=== PATIENT | female | born 1950 | race Hispanic/Latino ===

== ENCOUNTER 2019-02-08 06:23 | Observation (INO) | payer MEDICARE ==
[2019-02-07 14:28] LABS: BASOPHILS % 0.5 % (0.0-1.0); EOSINOPHILS # (AUTO) 0.2 (0.0-0.4); EOSINOPHILS % 2.3 % (0.0-6.0); HEMATOCRIT 38.1 % (34.2-44.1); HEMOGLOBIN 12.1 g/dL (12.0-16.0); LYMPHOCYTES # (AUTO) 1.9 (1.0-3.2); LYMPHOCYTES % 22.5 % (18.0-39.1); MEAN CORPUSCULAR HEMOGLOBIN 25.9 pg (28-32); MEAN CORPUSCULAR HGB CONC 31.8 g/dL (31-35); MEAN CORPUSCULAR VOLUME 81.6 fL (81-99); MONOCYTES # (AUTO) 0.4 (0.2-0.8); MONOCYTES % 4.7 % (4.4-11.3); NEUTROPHILS # (AUTO) 5.8 (2.1-6.9); NEUTROPHILS % 69.6 % (38.7-80.0); PLATELET COUNT 312 x10e3/uL (140-360); RED BLOOD COUNT 4.67 x10e6/uL (3.6-5.1); RED CELL DISTRIBUTION WIDTH 15.2 % (11.7-14.4)
[2019-02-07 14:40] LABS: INR 0.84
[2019-02-07 14:41] LABS: PARTIAL THROMBOPLASTIN TIME 27.4 seconds (23.8-35.5)
[2019-02-07 14:47] LABS: ALANINE AMINOTRANSFERASE 22 IU/L (0-55); ALBUMIN/GLOBULIN RATIO 1.3 (0.8-2.0); ALKALINE PHOSPHATASE 83 IU/L (40-150); ANION GAP 11.8 mmol/L (8-16); BLOOD UREA NITROGEN 18 mg/dL (7-26); BUN/CREATININE RATIO 21 (6-25); CARBON DIOXIDE 28 mmol/L (22-29); CHLORIDE 102 mmol/L (98-107); CREATININE, SERUM 0.85 mg/dL (0.57-1.11); EST GLOMERULAR FILTRATION RATE > 60 ML/MIN (60-); GLUCOSE 92 mg/dL (74-118); POTASSIUM 3.8 mmol/L (3.5-5.1); SODIUM 138 mmol/L (136-145)
--- NOTE | 2019-02-07 15:41 | Diagnostic Imaging Report ---
Chest, 2 views, 02/07/2019. History: Preop, heart catheterization. Comparison: None available. Findings: The cardiomediastinal silhouette and pulmonary vasculature are within normal limits. There is no focal consolidation or pleural effusion. Linear opacities are present at the lung bases. There are no acute osseous or soft tissue abnormalities. Impression: Bibasilar atelectasis. Signed by: Gaston Bowers on 02/07/2019 3:37 PM
[~2019-02-08] VITALS: Ht 149.9 cm; Wt 58.1 kg
[2019-02-08] VITALS (21 sets, daily range): BP systolic 95–138; BP diastolic 55–99
[~2019-02-08 06:23] MED LIST: AMLODIPINE BESYL5 MG PO; ASPIR 8181 MG PO; ATORVASTATIN CA20 MG PO; FENOFIBRATE145 MG PO; FLUTICASONE PRO16 GM; GABAPENTIN400 MG PO; GLIMEPIRIDE2 MG PO; LISINOPRIL10 MG PO; LORATADINE10 M1 PO; METFORMIN HCL500 MG PO; NAPROXEN250 MG PO; TRADJENTA5 MG PO; VITAMIN D35000 UNIT PO
--- OUTSIDE RECORDS SUMMARY | 2019-02-08 06:30 | XMS REPORT | Clinical Summary ---
Author Author [facility] Address Unknown Phone Unavailable Care Team Providers Care Bulk Picker Name Role Phone Arian Salazar MD PCP Allergies Comments Active Allergy Reactions Severity Noted Date Tramadol High 12/11/2018 Medications End Date Status Medication Sig Dispensed Refills Start Date 12/18/2018 cefdinir (OMNICEF) 300 MG Take 1 14 capsule 0 capsule capsule (300 9 mg total) by mouth 2 (two) times a day for 7 days. Active Problems Not on file Encounters Care Team Description Date Type Specialty Daiana Harrison MA 12/12/2018 Telephone Internal Medicine Chelle TiradoNorma MD Norma Recurrent acute suppurative otitis media without spontaneous rupture of left tympanic membrane (Primary Dx); Acute nonintractable headache, unspecified headache type 12/11/2018 Emergency Emergency Medicine after 02/07/2018 Social History Date Tobacco Use Types Packs/Day Years Used Never Assessed Sex Assigned at Date Recorded Not on file Industry Job Start Date Occupation Not on file Not on file Not on file Travel End Travel History Travel Start No recent travel history available. Last Filed Vital Signs Time Taken Vital Sign Reading 12/11/2018 4:23 PM CDT Blood Pressure 131/78 12/11/2018 4:23 PM CDT Pulse 89 12/11/2018 4:23 PM CDT Temperature 36.7 C (98.1 F) 12/11/2018 4:23 PM CDT Respiratory Rate 16 12/11/2018 4:23 PM CDT Oxygen Saturation 98% - Inhaled Oxygen - Concentration - Weight - 12/11/2018 4:29 PM CDT Height 157.5 cm (5' 2") - Body Mass Index - Plan of Treatment Health Maintenance Due Date Last Done Comments BREAST CANCER SCREENING 2002 COLON CANCER SCREENING 2002 SHINGLES VACCINES (#1) 2002 INFLUENZA VACCINE 04/20/2019 65+ PNEUMOCOCCAL VACCINE Completed 07/05/2018, 06/29/2017 PNEUMOCOCCAL Completed 07/05/2018 POLYSACCHARIDE VACCINE AGE 65 AND OVER Results Not on fileafter 02/07/2018 Insurance Type Payer Benefit Subscriber ID Effective Phone Address Plan / Dates Group [facility] MEDICARE AARP xxxxxxxxx 2018-P MEDICARE resent [facility]PLETE [facility] Advance Directives Patient has advance care planning documents on file. For more information, tarsha manning contact: Mikey Obrien [address] [place] [address]
--- OUTSIDE RECORDS SUMMARY | 2019-02-08 06:30 | XMS REPORT ---
Author Author [facility] Address Unknown Phone Unavailable Care Team Providers Care Cloth Mender Name Role Phone LUCITA KRUSE Unavailable Unavailable Problems This patient has no known problems. Allergies, Adverse Reactions, Alerts This patient has no known allergies or adverse reactions. Medications This patient has no known medications. Results Test Description Test Time Test Comments Text Results Atomic Results Result Comments CHEST 2 VIEWS 2019-02-07 15:36:00 [place] [address] Patient Name: MARIANGEL GARCIA MR #: [id number] : 1950 Age/Sex: 68/F Req #: [id number] [facility] Physician: Ordered by: LUCITA KRUSE MD Report #: [id number] Location: PRACTICE ARCHITECT Room/Bed: Procedure: [id number] DX/CHEST 2 VIEWS Exam Date: 02/07/19 Exam Time: 1420 REPORT STATUS: Signed Chest, 2 views, 02/07/2019. History: Preop, heart catheterization. Comparison: None available. Findings: The cardiomediastinal silhouette and pulmonary vasculature are within normal limits. There is no focal consolidation or pleural effusion. Linear opacities are present at the lung bases. There are no acute osseous or soft tissue abnormalities. Impression: Bibasilar atelectasis. Signed by: Julita Bowers on 02/07/2019 3:37 PM Dictated By: JULITA BOWERS MD 36 Transcribed By: VIDYA on 02/07/191536 COPY TO: LUCITA KRUSE MD
[2019-02-08] MEDS ORDERED: VERAPAMIL HCL 2.5 MG/ML 2 ML VIAL ONE (07:13)
[2019-02-08] MEDS ORDERED: LIDOCAINE HCL 2% LOCAL 20 ML VIAL ONE (07:13)
[2019-02-08] MEDS ORDERED: MIDAZOLAM HCL 2 MG/2 ML VIAL ONE ×2 (07:13→08:06)
[2019-02-08] MEDS ORDERED: HEPARIN SOD/SOD CHLORIDE 2,000 ML ONE (07:13)
[2019-02-08] MEDS ORDERED: HEPARIN SOD (PORCINE) 1000 UNIT/ML 30ML ONE (07:13)
[2019-02-08] MEDS ORDERED: FENTANYL CITRATE/PF 100MCG/2 ML INJ ONE (07:13)
[2019-02-08] MEDS ORDERED: SODIUM CHLORIDE 0.9% 1000ML 1,000 ML ONE (07:14)
[2019-02-08] MEDS ORDERED: IOPAMIDOL 370 MG/ML 200 ML INFUS..BTL INJ ONE ×2 (07:14→08:00)
[2019-02-08] MEDS ORDERED: NITROGLYCERIN/D5W 200 MCG/ML 250 ML ONE (07:14)
[2019-02-08] MEDS ORDERED: SODIUM CHLORIDE 0.9% 50ML 50 ML ONE (07:57)
[2019-02-08] MEDS ORDERED: BIVALRIUDIN 250 MG/VIAL VIAL IV ONE (07:57)
[2019-02-08] MEDS ORDERED: ATROPINE SULFATE 0.1 MG/ML 10ML SYR ONE (08:07)
[2019-02-08] MEDS ORDERED: CLOPIDOGREL BISULFATE 75 MG TAB ONE (08:15)
[2019-02-08] MEDS ORDERED: ASPIRIN 325 MG TAB ONE (08:15)
[2019-02-08] MEDS ORDERED: NITROGLYCERIN 400 MCG/SPRAY 4.9 GM BTL ONE (08:32)
--- NOTE | 2019-02-08 08:53 | NUR ---
0816 Received pt from service delivery manager handoff from [facility] [employer]. LHC via rt Rt arm TR band approach (10cc in Balloon) Dr Isaacs ICU bed requested Rm 190 received per Roll On Worker.Back to baseline orientation Respirations shallow and regular sat 92% 2 L n/c applied with increase sat 99%. Pt had episode suspected vagal response with HR decrease 28 in rn labor delivery 0.5 Atropine ivp with adequate response CO CP and NTG spray x1 per rn labor delivery nurse with adequate relief. Abdomen soft and nontender. Denies necessity to defecate or urinate. Left ac 500cc NS iv 20g w/o s/s infiltration. Bilateral femoral pulses present x4 PT/DP. ok to remove TR band in 2hrs. ds/rn
[2019-02-08] MEDS ORDERED: CLOPIDOGREL BISULFATE 75 MG TAB PO SCH (09:00)
--- NOTE | 2019-02-08 09:30 | NUR ---
0930am Transported pt to Icu per stretcher and zoll with o2 2lNC. Face to Face report to MELINDA Rodriguez. Rt tr band intact w/o hematoma or bleeding. NO gross issues with pain,pallor,pressure or dysrhythmia. VS stable in NSR 80-90 HR. Rt TR band site to wrist has adequate neuro-vascular function (ok to decrease air in balloon at 1100am )Left iv site healthy w/o s/s infiltration.ICU staff given daughters number at work by Soraya LAWRENCE ,also on escort to ICU. Pt is Romansh speaking. micha/rn
--- OUTSIDE RECORDS SUMMARY | 2019-02-08 09:45 | XMS REPORT | Clinical Summary ---
Author Author [facility] Organization [facility] Address Unknown Phone Unavailable Care Team Providers Care Newsperson Name Role Phone Arian Salazar MD PCP [...] Effective Phone Address Plan / Dates Group [facility] MEDICARE AARP xxxxxxxxx 2018-P MEDICARE resent [facility] Advance Directives Patient has advance care planning documents on file. For more information, tarsha manning contact: Mikey Obrien [address] [place] [address]
--- NOTE | 2019-02-08 09:56 | NUR ---
patient received from cath laboratory technician. TR band in place with some swelling noted. will monitor status closely. daughter on the way from home to translate for admit purposes.
--- NOTE | 2019-02-08 10:44 | NUR ---
daughter here to see patient. instructed not to remove right wrist TR band and that i will start to remove at 11AM. instructed to call for any exit from bed. all admit info obtained. stent information given to daughter Mariana. vitals stable with no distress.
--- NOTE | 2019-02-08 11:06 | NUR ---
have started removong air from TR band.
--- NOTE | 2019-02-08 12:19 | NUR ---
TR band off and pressure dressing applied to site. immobilizer still in place and patient instructed not to use wrist until further notice.
--- NOTE | 2019-02-08 12:44 | Operative Report ---
DATE OF PROCEDURE: 02/08/2019 SURGEON: Ahmet Isaacs MD PROCEDURES: 1. Intracoronary stent placement in the left anterior descending artery. 2. Left heart catheterization. INDICATIONS: 1. Angina. 2. Coronary artery disease. ANESTHESIA: Versed, fentanyl, and lidocaine. TECHNIQUE: The right wrist was draped and prepped in the usual manner. The area was anesthetized with lidocaine. Standard Seldinger technique was used to place a 6-Wolof sheath into the right radial artery without difficulty. A TIG catheter was used to selectively engage the left coronary artery, the right coronary artery and perform a left ventriculogram. Attention was then turned to the 80% stenosis in the mid left anterior descending artery. The patient was bolused with Angiomax and started on an Angiomax drip. The patient was given 600 mg of Plavix. IL 3.5 guiding catheter was used to selectively engage the left coronary artery. A Whisper wire was used to cross the area of stenosis. The area was pre-dilated with a 2.5 x 15 mm balloon. A 3.0 x 28 mm Synergy stent was then deployed at 16 atmospheres for 30 seconds. A second Synergy 3.0 x 12 mm stent was deployed immediately proximally at 16 atmospheres for 30 seconds. The stents were then postdilated sequentially with a noncompliant balloon inflated up to high pressures. There was no residual stenosis. RESULTS: 1. The normal left main trunk was normal. 2. There was a large left anterior descending artery, which was heavily calcified. It gave rise to a medium-sized diagonal branch. There was long area of 80% stenosis in the mid left anterior descending artery. 3. There was a medium-sized AV circumflex artery, which gave rise to a large bifurcating obtuse marginal branch with minimal disease in the circumflex system. 4. There was a large dominant right coronary artery, which had some mild disease. 5. There was normal left ventricular size and function with an ejection fraction of 60%. CONCLUSION: Successful stent placement in the left anterior descending artery with minimal residual stenosis. Ahmet Isaacs MD DSH/MODL /[id number]
[2019-02-08] MEDS: METOPROLOL TARTRATE 25 MG TAB PO SCH ×2 (13:46→17:49)
[2019-02-08] MEDS ORDERED: DEXTROSE 50% SYRINGE 50 ML IV PRN (17:30)
[2019-02-08] MEDS: INSULIN REGULAR, HUMAN 100 UNIT/1 ML 3ML VIAL SQ SCH (17:44)
[2019-02-08] MEDS ORDERED: MORPHINE SULFATE 2 MG/ML SYR 1ML IV PRN (20:45)
[2019-02-08] MEDS: MORPHINE SULFATE INJ 4 MG/ML INJ 1ML IV PRN (21:00)
[2019-02-09] VITALS: BP 95/55
[2019-02-09 01:00] VITALS: BP 101/57
[2019-02-09 02:00] VITALS: BP 111/68
[2019-02-09] MEDS: MORPHINE SULFATE INJ 4 MG/ML INJ 1ML IV PRN ×2 (02:54→06:36)
[2019-02-09 03:00] VITALS: BP 114/65
[2019-02-09 07:34] VITALS: BP 109/59
[2019-02-09 07:35] VITALS: BP 109/59
[2019-02-09] MEDS: INSULIN REGULAR, HUMAN 100 UNIT/1 ML 3ML VIAL SQ SCH (07:37)
[2019-02-09] MEDS ORDERED: LOPRESSOR25 MG PO (08:50)
[2019-02-09] MEDS ORDERED: PLAVIX75 MG PO (08:50)
[2019-02-09] MEDS ORDERED: CLOPIDOGREL BISULFATE 75 MG TAB PO SCH (09:00)
[2019-05-19] MEDS ORDERED: TRADJENTA5 MG (08:03)
== END 2019-02-09 09:35 | disposition home or self-care (01) ==
LOC: CATH LAB 06:23 → PACU V 08:53 → ICU 09:45
PROVIDERS: ADMIT Internal Medicine Cardiovascular Disease; ATTEND Internal Medicine Cardiovascular Disease
DX: I25.110 Atherosclerotic heart disease of native coronary artery with unstable angina pectoris (principal); E78.00 Pure hypercholesterolemia, unspecified; E11.40 Type 2 diabetes mellitus with diabetic neuropathy, unspecified; I10 Essential (primary) hypertension; Z79.4 Long term (current) use of insulin
CPT/HCPCS: 93458; C9600; 36415; 71046; 80053; 82948; 85025; 85610; 85730; 92928; C1725; C1769; C1874; C1887; G0378; J0583; J1644; J1817; J2001; J2250; J2270; J3010; J7030; Q9967

== ENCOUNTER 2019-02-12 11:11 | Emergency (ER) | payer MEDICARE ==
[~2019-02-12] VITALS: Ht 149.9 cm; Wt 58.1 kg
[~2019-02-12 11:11] MED LIST changes: +LOPRESSOR25 MG PO; +PLAVIX75 MG PO
--- OUTSIDE RECORDS SUMMARY | 2019-02-12 11:14 | XMS REPORT | Clinical Summary ---
Author Author [facility] Address Unknown Phone Unavailable Care Team Providers Care Ice Cream Freezer Name Role Phone Arian Salazar MD PCP [...] headache type 12/11/2018 Emergency Emergency Medicine after 02/11/2018 Social History Date Tobacco Use Types Packs/Day [...] 65 AND OVER Results Not on fileafter 02/11/2018 Insurance Type Payer Benefit Subscriber ID Effective Phone Address Plan / Dates Group [facility] MEDICARE AARP xxxxxxxxx 2018-P MEDICARE resent [facility]PLETE [facility] Advance Directives Patient has advance care planning documents on file. For more information, tarsha manning contact: Mikey Obrien [address] [place] [address]
[2019-02-12] MEDS ORDERED: LORAZEPAM 1 MG TAB PO ONE (11:45)
[2019-02-12 12:03] LABS: BASOPHILS % 0.3 % (0.0-1.0); EOSINOPHILS # (AUTO) 0.1 (0.0-0.4); EOSINOPHILS % 0.8 % (0.0-6.0); HEMATOCRIT 34.9 % (34.2-44.1); HEMOGLOBIN 11.3 g/dL (12.0-16.0); LYMPHOCYTES # (AUTO) 1.7 (1.0-3.2); LYMPHOCYTES % 16.4 % (18.0-39.1); MEAN CORPUSCULAR HEMOGLOBIN 26.2 pg (28-32); MEAN CORPUSCULAR HGB CONC 32.4 g/dL (31-35); MONOCYTES # (AUTO) 0.6 (0.2-0.8); NEUTROPHILS # (AUTO) 7.7 (2.1-6.9); NEUTROPHILS % 76.1 % (38.7-80.0); PLATELET COUNT 305 x10e3/uL (140-360); RED BLOOD COUNT 4.31 x10e6/uL (3.6-5.1); RED CELL DISTRIBUTION WIDTH 14.9 % (11.7-14.4)
[2019-02-12 12:27] LABS: BLOOD UREA NITROGEN 13 mg/dL (7-26); BUN/CREATININE RATIO 18 (6-25); CARBON DIOXIDE 29 mmol/L (22-29); CHLORIDE 97 mmol/L (98-107); CREATINE KINASE 99 IU/L (29-168); CREATININE, SERUM 0.72 mg/dL (0.57-1.11); EST GLOMERULAR FILTRATION RATE > 60 ML/MIN (60-); GLUCOSE 140 mg/dL (74-118); SODIUM 135 mmol/L (136-145)
[2019-02-12 12:47] LABS: BILIRUBIN,URINE NEGATIVE (NEGATIVE); CLARITY,URINE CLEAR (CLEAR); COLOR,URINE YELLOW (YELLOW); KETONES,URINE NEGATIVE (NEGATIVE); NITRITE,URINE NEGATIVE (NEGATIVE); PROTEIN,URINE DIPSTICK NEGATIVE (NEGATIVE); URINE UROBILINOGEN 0.2 mg/dL (0.2 - 1)
[2019-02-12 12:50] LABS: LEUKOCYTE ESTERASE ,URINE TRACE (NEGATIVE)
[2019-02-12 12:59] LABS: BACTERIA,URINE MANY /HPF; EPITHELIAL CELLS,URINE MODERATE /LPF; WBC,URINE (MAN) >50 /HPF (0-5)
--- NOTE | 2019-02-12 13:00 | NUR ---
PT RESTING IN BED IN LOW FOWLERS, EYES CLOSED, BREATHING EVEN/UNLABORED, NAD NOTED AT THIS TIME.
[2019-02-12] MEDS ORDERED: CEFTRIAXONE SOD 1 GM/NS 50 ML 50 ML IV ONE (13:15)
[2019-02-12 14:05] VITALS: BP 131/80
== END 2019-02-12 14:20 | disposition home or self-care (01) ==
LOC: ER 11:11
DX: M54.5 Low back pain (principal); I10 Essential (primary) hypertension; E11.9 Type 2 diabetes mellitus without complications; I25.10 Atherosclerotic heart disease of native coronary artery without angina pectoris; E78.5 Hyperlipidemia, unspecified; N30.00 Acute cystitis without hematuria; Z79.84 Long term (current) use of oral hypoglycemic drugs
CPT/HCPCS: 36415; 80048; 81001; 82550; 82553; 84484; 85025; 99284; J0696

== ENCOUNTER → 2019-05-19 | Day surgery (SDC) | payer MEDICARE ==
[2019-05-17 11:55] LABS: BASOPHILS % 0.2 % (0.0-1.0); EOSINOPHILS # (AUTO) 0.2 (0.0-0.4); EOSINOPHILS % 2.6 % (0.0-6.0); HEMATOCRIT 38.3 % (34.2-44.1); HEMOGLOBIN 12.3 g/dL (12.0-16.0); LYMPHOCYTES # (AUTO) 2.1 (1.0-3.2); LYMPHOCYTES % 24.7 % (18.0-39.1); MEAN CORPUSCULAR HEMOGLOBIN 25.9 pg (28-32); MEAN CORPUSCULAR HGB CONC 32.1 g/dL (31-35); MEAN CORPUSCULAR VOLUME 80.8 fL (81-99); MONOCYTES # (AUTO) 0.4 (0.2-0.8); MONOCYTES % 4.8 % (4.4-11.3); NEUTROPHILS # (AUTO) 5.7 (2.1-6.9); NEUTROPHILS % 67.1 % (38.7-80.0); PLATELET COUNT 284 x10e3/uL (140-360); RED BLOOD COUNT 4.74 x10e6/uL (3.6-5.1); RED CELL DISTRIBUTION WIDTH 16.1 % (11.7-14.4)
[2019-05-17 12:10] LABS: INR 0.88; PROTHROMBIN TIME 12.4 seconds (11.9-14.5)
[2019-05-17 12:11] LABS: PARTIAL THROMBOPLASTIN TIME 27.8 seconds (23.8-35.5)
[2019-05-17 12:13] LABS: LYMPHOCYTES % (MANUAL) 12 % (19-48); MONOCYTES % (MANUAL) 9 % (3.4-9.0); NEUTROPHILS % (MANUAL) 76 % (40-74); PLATELET ESTIMATE ADEQUATE; PLATELET MORPHOLOGY COMMENT NORMAL; RBC MORPHOLOGY COMMENT NORMAL
[2019-05-17 12:18] LABS: ALANINE AMINOTRANSFERASE 21 IU/L (0-55); ALBUMIN 4.2 g/dL (3.5-5.0); ALBUMIN/GLOBULIN RATIO 1.4 (0.8-2.0); ALKALINE PHOSPHATASE 89 IU/L (40-150); ANION GAP 14.1 mmol/L (8-16); BLOOD UREA NITROGEN 22 mg/dL (7-26); BUN/CREATININE RATIO 31 (6-25); CALCIUM 10.1 mg/dL (8.4-10.2); CARBON DIOXIDE 27 mmol/L (22-29); CHLORIDE 103 mmol/L (98-107); EST GLOMERULAR FILTRATION RATE > 60 ML/MIN (60-); GLUCOSE 61 mg/dL (74-118); POTASSIUM 4.1 mmol/L (3.5-5.1); SODIUM 140 mmol/L (136-145)
--- NOTE | 2019-05-17 12:19 | Diagnostic Imaging Report ---
Exam: Chest radiograph Clinical History: Preoperative clearance Findings: The cardiomediastinal silhouette and lungs are normal. The regional skeleton and soft tissue are unremarkable. There is no evidence of pleural effusion or pneumothorax. Impression: No radiographic evidence of acute cardiopulmonary disease. Signed by: Dr. Leonel Pearl MD on 05/17/2019 12:16 PM
[2019-05-19] VITALS (9 sets, daily range): BP systolic 111–155; BP diastolic 64–86
[~2019-05-19] VITALS: Ht 149.9 cm; Wt 58.1 kg
[~2019-05-19] MED LIST changes: +FENTANYL CITRATE/PF 100MCG/2 ML INJ ONE; +HEPARIN SOD/SOD CHLORIDE 2,000 ML ONE; +IOPAMIDOL 370 MG/ML 200 ML INFUS..BTL INJ ONE; +LIDOCAINE HCL 2% LOCAL 20 ML VIAL ONE; +MIDAZOLAM HCL 2 MG/2 ML VIAL ONE; +SODIUM CHLORIDE 0.9% 1000ML 1,000 ML ONE; +TRADJENTA5 MG; +VERAPAMIL HCL 2.5 MG/ML 2 ML VIAL ONE
--- OUTSIDE RECORDS SUMMARY | 2019-05-19 07:21 | XMS REPORT | Summary of Care ---
Author Author [facility] Organization [facility] Address Unknown Phone Unavailable Encounter HQ Donavanr_cindy(FIN) [id number] Date(s): 05/01/19 - 05/01/19 [facility] [address] [place] [address]- Attending Physician: Veronica Mccracken MD Vital Signs No data available for this section Problem List Condition Effective Dates Status Health Status Informant Benign essential Active HTN(Confirmed) Chest Active pain(Confirmed) CAD (coronary artery Active disease)(Confirmed) Hyperlipemia, Active mixed(Confirmed) Ear pain(Confirmed) Active Simple Active obesity(Confirmed) TMJ Active tenderness(Confirmed ) Type 2 diabetes Active mellitus(Confirmed) Allergies, Adverse Reactions, Alerts Substance Reaction Severity Status ibuprofen Active traMADol Active Medications No data available for this section Results No data available for this section Immunizations Given and Recorded Vaccine Date Status Refusal Reason Hx influenza vaccine-unspecified 06/20/18 Recorded Hx pneumococcal vaccine 06/20/18 Recorded Procedures Procedure Date Related Diagnosis Body Site Status Mammogram - screening1 12/07/18 Completed Mammogram 2019 Completed Screening colonoscopy2 01/07/15 Completed Operative procedure on shoulder3 2011 Completed section4 Completed Colonoscopy Completed 1Normal 2Repeat in 5 years 3right shoulder tendons 4x 4 Social History Social History Type Response Alcohol Never Employment/School Status: Employed. 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 Substance Abuse Use: None. Smoking Status Never smoker; Exposure to Tobacco Smoke None; Cigarette Smoking Last 365 Days No; Reg Smoking Cessation Counseling No entered on: 05/01/19 Assessment and Plan No data available for this section
--- OUTSIDE RECORDS SUMMARY | 2019-05-19 07:21 | XMS REPORT | Continuity of Care Document ---
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 Name Role Phone Solutionary Information echoBase Unavailable Unavailable Problems Problem Status Onset Date Classification Date Reported Comments Source Benign essential hypertension (disorder) Active Problem 05/04/2019 [facility] Chest pain (finding) Active Problem 05/04/2019 [facility] Coronary arteriosclerosis (disorder) Active Problem 05/04/2019 [facility] Mixed hyperlipidemia (disorder) Active Problem 05/04/2019 [facility] Otalgia (disorder) Active Problem 05/04/2019 [facility] Simple obesity (disorder) Active Problem 05/04/2019 [facility] Temporomandibular joint tender (finding) Active Problem 05/04/2019 [facility] Diabetes mellitus type 2 (disorder) Active Problem 05/04/2019 [facility] Medications Medication Details Route Status Patient Instructions Ordering Provider Order Date Source diclofenac potassium 50 mg oral tablet 50 mg=1 tab, PO, BID, PRN Pelvic Pain, X 7 day, # 14 tab, 0 Refill(s), Pharmacy: [facility] [place] [id number] Active 02/21/2019 [facility] traMADol 100 mg/24 hours oral capsule, extended release 100 mg=1 cap, PO, Daily, 0 Refill(s) Active 02/21/2019 [facility] tramadol hydrochloride 50 MG Oral Tablet 50 mg=1 tab, PO, Q6H, PRN Pain, # 40 tab, 0 Refill(s) Active 02/21/2019 [facility] ciclopirox 80 MG/ML Topical Solution 0 Refill(s) Active 02/21/2019 [facility] clopidogrel 75 mg oral tablet 75 mg=1 tab, PO, Daily, # 90 tab, 1 Refill(s) Active 02/21/2019 [facility] diazepam 5 mg oral tablet 5 mg=1 tab, PO, Q8H, PRN Muscle Spasms, # 30 tab, 0 Refill(s) Active 02/21/2019 [facility] Clopidogrel Bisulfate (Plavix) 75 Mg Tablet Daily Active [place] 02/09/2019 [facility] Metoprolol Tartrate (Lopressor) 25 Mg Tab Twice A Day Active [place] 02/09/2019 [facility] lisinopril 20 mg oral tablet 20 mg=1 tab, PO, Daily, # 90 tab, 1 Refill(s) Active 01/26/2019 [facility] glimepiride 4 mg oral tablet 4 mg=1 tab, PO, Breakfast, # 90 tab, 1 Refill(s) Active 01/26/2019 [facility] Ciprofloxacin 2 MG/ML / Hydrocortisone 10 MG/ML Otic Suspension [Cipro HC] 3 drp, BOTH EARS, BID, X 7 day, # 10 ml, 0 Refill(s), Pharmacy: [id number] Active 01/18/2019 [facility] Aspirin 81 MG Enteric Coated Tablet 81 mg=1 tab, PO, Daily Active 01/18/2019 [facility] naproxen 500 mg oral tablet 500 mg=1 tab, PO, BID, 0 Refill(s) Active 01/18/2019 [facility] atorvastatin 20 mg oral tablet 20 mg=1 tab, PO, Bedtime, 0 Refill(s) Active 01/18/2019 [facility] Linagliptin 5 MG Oral Tablet [Tradjenta] 5 mg=1 tab, PO, Daily, 0 Refill(s) Active 01/18/2019 [facility] amLODIPine 5 mg oral tablet 5 mg=1 tab, PO, Daily, 0 Refill(s) Active 01/18/2019 [facility] Loratadine 10 MG Oral Tablet 10 mg=1 tab, PO, Daily, 0 Refill(s) Active 01/18/2019 [facility] Metformin hydrochloride 500 MG Oral Tablet 1,000 mg=2 tab, PO, BID, 0 Refill(s) Active 01/18/2019 [facility] Fenofibrate 145 MG Oral Tablet 145 mg=1 tab, PO, Daily, 0 Refill(s) Active 01/18/2019 [facility] gabapentin 400 MG Oral Capsule 400 mg=1 cap, PO, TID, 0 Refill(s) Active 01/18/2019 [facility] Fluticasone propionate 0.05 MG/ACTUAT Metered Dose Nasal [place] 1 spray, NASAL, Bedtime, 0 Refill(s) Active 01/18/2019 [facility] Amlodipine Besylate 5 Mg Tablet Daily Active [facility] Aspirin (Aspir 81) 81 Mg Tablet.dr Daily Active [facility] Atorvastatin Calcium 20 Mg Tablet Bedtime Active [facility] Cholecalciferol (Vitamin D3) (Vitamin D3) 5,000 Unit Capsule Daily Active [facility] Fenofibrate Nanocrystallized (Fenofibrate) 145 Mg Tablet Daily Active [facility] Fluticasone Propionate 16 Gm [place].susp Bedtime Active [facility] Gabapentin 400 Mg Capsule Three Times A Day Active [facility] Glimepiride 2 Mg Tablet Daily Active [facility] Linagliptin (Tradjenta) 5 Mg Tablet Daily Active [facility] Lisinopril 10 Mg Tablet Daily Active [facility] Loratadine 10 Mg Tab.rapdis Daily Active [facility] Metformin Hcl 500 Mg Tablet Twice A Day Active [facility] Naproxen 250 Mg Tablet Twice A Day Active [facility] Allergies, Adverse Reactions, Alerts Substance Category Reaction Severity Reaction type Status Date Reported Comments Source No Known Drug Allergies Unknown Allergy to Substance Active 02/07/2019 [facility] ibuprofen Assertion Drug allergy Active [facility] traMADol Assertion Drug allergy Active [facility] Immunizations Immunization Date Given Site Status Last Updated Comments Source Hx influenza vaccine-unspecified 06/20/2018 [facility] Hx pneumococcal vaccine 06/20/2018 [facility] Results Order Name Results Value Reference Range Date Interpretation Comments Source Blood leukocytes automated count (number/volume) 10.10 4.8 - 10.8 02/12/2019 [facility] Blood erythrocytes automated count (number/volume) 4.31 3.6 - 5.1 02/12/2019 [facility] Blood hemoglobin measurement (moles/volume) 11.3 12.0 - 16.0 02/12/2019 [facility] Automated blood hematocrit (volume fraction) 34.9 34.2 - 44.1 02/12/2019 [facility] Automated erythrocyte mean corpuscular volume 81.0 81 - 99 02/12/2019 [facility] Automated erythrocyte mean corpuscular hemoglobin (mass per erythrocyte) 26.2 28 - 32 02/12/2019 [facility] Automated erythrocyte mean corpuscular hemoglobin concentration measurement (mass/volume) 32.4 31 - 35 02/12/2019 [facility] RDW BldCo-Rto 14.9 11.7 - 14.4 02/12/2019 [facility] Automated blood platelet count (count/volume) 305 140 - 360 02/12/2019 [facility] Automated blood segmented neutrophil count as percentage of total leukocytes 76.1 38.7 - 80.0 02/12/2019 [facility] Automated blood lymphocyte count as percentage ot total leukocytes 16.4 18.0 - 39.1 02/12/2019 [facility] Automated blood monocyte count as percentage of total leukocytes 6.0 4.4 - 11.3 02/12/2019 [facility] Automated blood eosinophil count as percentage of total leukocytes 0.8 0.0 - 6.0 02/12/2019 [facility] Automated blood basophil count as percentage of total leukocytes 0.3 0.0 - 1.0 02/12/2019 [facility] IM GRANULOCYTES % 0.4 0.0 - 1.0 02/12/2019 [facility] Automated blood neutrophil count 7.7 2.1 - 6.9 02/12/2019 [facility] Blood lymphocytes count (number/volume) 1.7 1.0 - 3.2 02/12/2019 [facility] Blood monocytes automated count (number/volume) 0.6 0.2 - 0.8 02/12/2019 [facility] Automated blood eosinophil count 0.1 0.0 - 0.4 02/12/2019 [facility] Automated blood basophil count (count/volume) 0.0 0.0 - 0.1 02/12/2019 [facility] Absolute Immature Granulocyte (auto 0.04 0 - 0.1 02/12/2019 [facility] Serum or plasma sodium measurement (moles/volume) 135 136 - 145 02/12/2019 [facility] Serum or plasma potassium measurement (moles/volume) 4.0 3.5 - 5.1 02/12/2019 [facility] Serum or plasma chloride measurement (moles/volume) 97 98 - 107 02/12/2019 [facility] Serum or plasma carbon dioxide, total measurement (moles/volume) 29 22 - 29 02/12/2019 [facility] Serum or plasma anion gap 13.0 8 - 16 02/12/2019 [facility] Serum or plasma urea nitrogen measurement (mass/volume) 13 7 - 26 02/12/2019 [facility] Serum or plasma creatinine measurement (mass/volume) 0.72 0.57 - 1.11 02/12/2019 [facility] Serum or plasma urea nitrogen/creatinine mass ratio 18 6 - 25 02/12/2019 [facility] Estimated glomerular filtration rate (GFR) determination > 60 60 02/12/2019 [facility] Glucose measurement 140 74 - 118 02/12/2019 [facility] Serum or plasma calcium measurement (mass/volume) 10.0 8.4 - 10.2 02/12/2019 [facility] Serum or plasma creatine kinase measurement (enzymatic activity/volume) 99 29 - 168 02/12/2019 [facility] Serum or plasma creatine kinase MB measurement (mass/volume) 1.30 0 - 5.0 02/12/2019 [facility] Troponin I measurement by highly sensitive enzyme immunoassay 0.005 0 - 0.300 02/12/2019 [facility] Urine color determination YELLOW YELLOW 02/12/2019 [facility] Urine clarity CLEAR CLEAR 02/12/2019 [facility] Specific gravity of Urine by Test strip 1.010 1.010 - 1.025 02/12/2019 [facility] Urine pH measurement by automated test strip 8 5 - 7 02/12/2019 [facility] Urine leukocyte esterase detection by automated test strip TRACE NEGATIVE 02/12/2019 [facility] Urine nitrite detection by automated test strip NEGATIVE NEGATIVE 02/12/2019 [facility] Urine protein detection by automated test strip NEGATIVE NEGATIVE 02/12/2019 [facility] Urine glucose detection by automated test strip 1+ NEGATIVE 02/12/2019 [facility] Urine ketones detection by automated test strip NEGATIVE NEGATIVE 02/12/2019 [facility] Urine urobilinogen measurement by test strip (mass/volume) 0.2 0.2 - 1 02/12/2019 [facility] Urine total bilirubin detection NEGATIVE NEGATIVE 02/12/2019 [facility] Urine erythrocytes detection NEGATIVE NEGATIVE 02/12/2019 [facility] Automated urine sediment leukocyte count by microscopy (number/high power field) >50 0 - 5 02/12/2019 [facility] Erythrocytes detection in urine sediment by light microscopy NONE 0 - 5 02/12/2019 [facility] Bacteria detection in urine sediment by light microscopy MANY NONE 02/12/2019 [facility] Epithelial cells detection in urine sediment by light microscopy MODERATE NONE 02/12/2019 [facility] Capillary blood glucose measurement by glucometer (mass/volume) 192 70 - 120 02/08/2019 [facility] Prothrombin time (PT) in platelet poor plasma by coagulation assay 12.0 11.9 - 14.5 02/07/2019 [facility] INR in Platelet poor plasma by Coagulation assay 0.84 02/07/2019 [facility] Activated partial thromboplastin time (aPTT) in platelet poor plasma bycoagulation assay 27.4 23.8 - 35.5 02/07/2019 [facility] Serum or plasma total bilirubin measurement (mass/volume) 0.2 0.2 - 1.2 02/07/2019 [facility] Aspartate Amino Transf (AST/SGOT) 21 5 - 34 02/07/2019 [facility] Serum or plasma alanine aminotransferase measurement (enzymatic activity/volume) 22 0 - 55 02/07/2019 [facility] Serum or plasma protein measurement (mass/volume) 7.1 6.5 - 8.1 02/07/2019 [facility] Serum or plasma albumin measurement (mass/volume) 4.0 3.5 - 5.0 02/07/2019 [facility] Plasma globulin measurement (mass/volume) 3.1 2.3 - 3.5 02/07/2019 [facility] Serum or plasma albumin/globulin mass ratio 1.3 0.8 - 2.0 02/07/2019 [facility] Serum or plasma alkaline phosphatase measurement (enzymatic activity/volume) 83 40 - 150 02/07/2019 [facility] Pathology Reports No Data Provided for This Section Diagnostic Reports No Data Provided for This Section Consultation Notes No Data Provided for This Section Discharge Summaries No Data Provided for This Section History and Physicals No Data Provided for This Section Vital Signs Vital Sign Value Date Comments Source Systolic (mm Hg) 115 05/01/2019 [facility] Diastolic (mm Hg) 69 05/01/2019 [facility] Heart Rate 80 05/01/2019 [facility] Respitory Rate 20 05/01/2019 [facility] Temperature Oral (F) 98.3 F 05/01/2019 [facility] Height 149.86 cm 05/01/2019 [facility] Weight 57.273 05/01/2019 [facility] BMI Calculated 25.5 05/01/2019 [facility] Heart Rate 77 02/21/2019 [facility] Systolic (mm Hg) 111 02/21/2019 [facility] Diastolic (mm Hg) 73 02/21/2019 [facility] Temperature Oral (F) 97.4 F 02/21/2019 [facility] Respitory Rate 16 02/21/2019 [facility] Height 137.16 cm 02/21/2019 [facility] Weight 60.455 01/26/2019 [facility] BMI Calculated 32.13 01/26/2019 [facility] Height 137.16 cm 01/26/2019 [facility] Systolic (mm Hg) 109 01/26/2019 [facility] Diastolic (mm Hg) 66 01/26/2019 [facility] Temperature Oral (F) 98.0 F 01/26/2019 [facility] Respitory Rate 16 01/26/2019 [facility] Heart Rate 82 01/26/2019 [facility] Height 139.7 cm 01/18/2019 [facility] Weight 60.455 01/18/2019 [facility] BMI Calculated 30.98 01/18/2019 [facility] Respitory Rate 14 01/18/2019 [facility] Heart Rate 81 01/18/2019 [facility] Temperature Oral (F) 97.2 F 01/18/2019 [facility] Systolic (mm Hg) 143 01/18/2019 [facility] Diastolic (mm Hg) 79 01/18/2019 [facility] Encounters Location Location Details Encounter Type Encounter Number Reason For Visit Attending Provider ADM Date DC Date Status Source Outpatient [id number] Veronica Redman 01/18/2019 Active [facility] Outpatient [id number] Veronica Redman 01/18/2019 01/19/2019 [facility] Outpatient [id number] Veronica Redman 01/26/2019 [facility] Primary [facility] Outpatient [id number] Veronica Redman 01/26/2019 01/27/2019 [facility] Discharged Inpatient (obs) [id number] LUCITA KRUSE MD 02/08/2019 02/09/2019 [facility] Departed Emergency Room [id number] JEANETTE WU MD 02/12/2019 02/12/2019 [facility] Outpatient [id number] Veronica Redman 02/21/2019 Active [facility] Outpatient [id number] Veronica Redman 02/21/2019 02/22/2019 [facility] Outpatient [id number] Veronica Redman 05/01/2019 Active [facility] Outpatient [id number] Veronica Redman 05/01/2019 Active [facility] Outpatient [id number] Veronica Redman 05/01/2019 Active [facility] Primary Care [facility] Ambulatory Pre-Reg [id number] Veronica Hook Redman 05/01/2019 05/01/2019 [facility] [place] Outpatient [id number] Veronica Hook Redman 05/01/2019 05/02/2019 [facility] [place] Ambulatory Pre-Reg [id number] Veronica Redman 05/01/2019 05/01/2019 [facility] Procedures Procedure Code Date Perfomer Comments Source X-ray of chest, two views [id number] 02/07/[address] [facility] Removal impacted cerumen requiring instrumentation, unilateral [id number] 01/18/2019 [facility] Mammogram - screening<sup>1</sup> [id number] 12/07/2018 Normal [facility] Mammogram [id number] 09/20/2018 [facility] Screening colonoscopy<sup>2</sup> [id number] 01/07/2015 Repeat in 5 years [facility] Operative procedure on shoulder<sup>3</sup> [id number] 09/20/2011 right shoulder tendons [facility] Operative procedure on shoulder<sup>1</sup> [id number] 09/20/2011 right shoulder tendons [facility] section<sup>4</sup> [id number] x 4 [facility] Colonoscopy [id number] [facility] section<sup>2</sup> [id number] x 4 [facility] Assessment and Plan No Data Provided for This Section Plan of Care Plan of Care Date Source Discharge Date 02/12/19 2:20pm Disposition HOME, SELF-CARE Condition at Discharge Stable Instructions/Education Provided Urinary Tract Infection - Women Forms Provided Work/School Excuse Prescriptions See Medication Section Referrals LUCITA KRUSE MD Address: [address] [place] [address] MELCHOR MEDLEY MD Address: [facility] [place] [address] Additional Instructions/Education Your diagnosis today is acute nontraumatic lumbar back pain and acute urinary tract infection with cystitis. Take medications as prescribed. Follow up with Primary Care Physician. Return to nearest ED for any acute changes in condition. 02/12/2019 [facility] Social History Social History Date Source Social History Problem Response Recorded Date/Time Onset Date Status Hx Substance Use Disorder N - PATIENT DENIES 02/07/2019 1:15pm Not Applicable Not Applicable Hx Alcohol Use Y - "DRINKS ABOUT ONCE EVERY 3 MONTHS" 02/07/2019 1:15pm Not Applicable Not Applicable Smoking Status Start Date Stop Date Never Smoker 02/12/2019 [facility] Social History TypeResponse Alcohol Never Employment/School Status: Employed. Work/School description: [employer]. Substance Abuse Use: None. Smoking Status Never smoker; Exposure to Tobacco Smoke None; Cigarette Smoking Last 365 Days No; Reg Smoking Cessation Counseling No entered on: 05/01/19 01/18/2019 [facility] Family History No Data Provided for This Section Advance Directives Order Name Results Value Date Source Advance Directives Advance Directives Directive Response Recorded Date/Time Does the patient have an advance directive? No 02/08/19 10:25am Do you have a Directive to Physician? No 02/12/19 11:49am Do you have a Medical Power of Director Clinical Data? No 02/12/19 11:49am Do you have an out of hospital Do Not Resuscitate Order? No 02/12/19 11:49am Do you have any special needs we should be aware of? No 02/12/19 11:49am Do you have a support person here with you today? Yes 02/12/19 11:49am Did patient receive Notice of Privacy Practices? Yes 02/12/19 11:49am Did patient receive patient rights and responsibilities? Yes 02/12/19 11:49am 02/12/2019 [facility] Functional Status No Data Provided for This Section
--- OUTSIDE RECORDS SUMMARY | 2019-05-19 07:21 | XMS REPORT | Summary of Care ---
Author Author [facility] Organization [facility] Address Unknown Phone Unavailable Encounter OLIVIA Thomas(SEAMUS) [id number] Date(s): 02/21/19 - 02/21/19 [facility] [address] [facility] [address] [place] [address]- [phone] Discharge Disposition: Home or Self Care Attending Physician: Veronica Mccracken MD Vital Signs Most recent to 1 oldest [Reference Range]: Height 137.16 cm (02/21/19 11:00 AM) Temperature Oral 97.4 DegF [96.4-99.1 DegF] (02/21/19 11:00 AM) Blood Pressure 111/73 mmHg [90-140/60-90 mmHg] (02/21/19 11:00 AM) Respiratory Rate 16 BRMIN [14-20 BRMIN] (02/21/19 11:00 AM) Peripheral Pulse 77 bpm Rate [60-100 bpm] (02/21/19 11:00 AM) Problem List Condition Effective Dates Status Health Status Informant Benign essential Active HTN(Confirmed) Chest Active pain(Confirmed) CAD (coronary artery Active disease)(Confirmed) Hyperlipemia, Active mixed(Confirmed) Ear pain(Confirmed) Active Simple Active obesity(Confirmed) TMJ Active tenderness(Confirmed ) Type 2 diabetes Active mellitus(Confirmed) Allergies, Adverse Reactions, Alerts Substance Reaction Severity Status ibuprofen Active traMADol Active Medications ciclopirox topical 8% kit 0 Refill(s) Start Date: 02/21/19 Status: Ordered clopidogrel 75 mg oral tablet 75 mg=1 tab, PO, Daily, # 90 tab, 1 Refill(s) Start Date: 02/21/19 Status: Ordered diazepam 5 mg oral tablet 5 mg=1 tab, PO, Q8H, PRN Muscle Spasms, # 30 tab, 0 Refill(s) Start Date: 02/21/19 Stop Date: 03/08/19 Status: Ordered diclofenac potassium 50 mg oral tablet 50 mg=1 tab, PO, BID, PRN Pelvic Pain, X 7 day, # 14 tab, 0 Refill(s), Pharmacy: [id number] Start Date: 02/21/19 Stop Date: 02/28/19 Status: Ordered traMADol 100 mg/24 hours oral capsule, extended release 100 mg=1 cap, PO, Daily, 0 Refill(s) Start Date: 02/21/19 Status: Ordered tramadol 50 mg oral tablet 50 mg=1 tab, PO, Q6H, PRN Pain, # 40 tab, 0 Refill(s) Start Date: 02/21/19 Stop Date: 03/03/19 Status: Ordered Results No data available for this section [...] 4 Social History Social History Type Response Substance Abuse Use: None. Employment/School Status: Employed. 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 Alcohol Never Smoking Status Never smoker; Exposure to Tobacco Smoke None; Cigarette Smoking Last 365 Days No; Reg Smoking Cessation Counseling No entered on: 02/21/19 Assessment and Plan No data available for this section
--- OUTSIDE RECORDS SUMMARY | 2019-05-19 07:21 | XMS REPORT | Summary of Care ---
Author Author [facility] Organization [facility] Address Unknown Phone Unavailable Encounter OLIVIA Thomas(SEAMUS) [id number] Date(s): 01/18/19 - 01/18/19 [facility] [address] [place] [address]- Discharge Disposition: Home or Self Care Attending Physician: Veronica Mccracken MD Vital Signs Most recent to 1 oldest [Reference Range]: Height 139.7 cm (01/18/19 2:44 PM) Temperature Oral 97.2 DegF [96.4-99.1 DegF] (01/18/19 2:44 PM) Blood Pressure 143/79 mmHg [90-140/60-90 mmHg] *HI* (01/18/19 2:44 PM) Respiratory Rate 14 BRMIN [14-20 BRMIN] (01/18/19 2:44 PM) Peripheral Pulse 81 bpm Rate [60-100 bpm] (01/18/19 2:44 PM) Weight 60.455 kg (01/18/19 2:44 PM) Body Mass Index 30.98 m2 (01/18/19 2:44 PM) Problem List Condition Effective Dates Status Health Status Informant Simple Active obesity(Confirmed) Allergies, Adverse Reactions, Alerts Substance Reaction Severity Status ibuprofen Active traMADol Active Medications amLODIPine 5 mg oral tablet 5 mg=1 tab, PO, Daily, 0 Refill(s) Start Date: 01/18/19 Status: Ordered aspirin 81 mg tablet, enteric coated 81 mg=1 tab, PO, Daily Start Date: 01/18/19 Status: Ordered atorvastatin 20 mg oral tablet 20 mg=1 tab, PO, Bedtime, 0 Refill(s) Start Date: 01/18/19 Status: Ordered Cipro HC otic suspension 3 drp, BOTH EARS, BID, X 7 day, # 10 ml, 0 Refill(s), Pharmacy: [id number] Start Date: 01/18/19 Stop Date: 01/25/19 Status: Ordered fenofibrate 145 mg oral tablet 145 mg=1 tab, PO, Daily, 0 Refill(s) Start Date: 01/18/19 Status: Ordered fluticasone nasal 0.05 mg/inh spray 1 spray, NASAL, Bedtime, 0 Refill(s) Start Date: 01/18/19 Status: Ordered gabapentin 400 mg oral capsule 400 mg=1 cap, PO, TID, 0 Refill(s) Start Date: 01/18/19 Status: Ordered loratadine 10 mg oral tablet 10 mg=1 tab, PO, Daily, 0 Refill(s) Start Date: 01/18/19 Status: Ordered metFORMIN 500 mg oral tablet 1,000 mg=2 tab, PO, BID, 0 Refill(s) Start Date: 01/18/19 Status: Ordered naproxen 500 mg oral tablet 500 mg=1 tab, PO, BID, 0 Refill(s) Start Date: 01/18/19 Status: Ordered Tradjenta 5 mg oral tablet 5 mg=1 tab, PO, Daily, 0 Refill(s) Start Date: 01/18/19 Status: Ordered Results No data available for this section Immunizations Given and Recorded Vaccine Date Status Refusal Reason Hx influenza vaccine-unspecified 06/20/18 Recorded Hx pneumococcal vaccine 06/20/18 Recorded Procedures Procedure Date Related Diagnosis Body Site Status Removal impacted cerumen requiring 01/18/19 Completed instrumentation, unilateral Mammogram 2018 Completed Operative procedure on shoulder1 2011 Completed section2 Completed Colonoscopy Completed 1right shoulder tendons 2x 4 Social History Social History Type Response Substance Abuse Use: None. Employment/School Status: Employed. 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
--- OUTSIDE RECORDS SUMMARY | 2019-05-19 07:21 | XMS REPORT | Clinical Summary ---
Author Author [facility] Organization [facility] Address Unknown Phone Unavailable Care Team Providers Care Instructor Physical Education Name Role Phone Arian Salazar MD PCP [...] headache type 12/11/2018 Emergency Emergency Medicine after 05/18/2018 Social History Date Tobacco Use Types Packs/Day Years Used Never Assessed Sex Assigned at Date Recorded Not on file Industry Job Start Date Occupation Not on file Not on file Not on file Travel End Travel History Travel Start No recent travel history available. Last Filed Vital Signs Reading Time Taken Comments Vital Sign 131/78 12/11/2018 4:23 PM CDT Blood Pressure 89 12/11/2018 4:23 PM CDT Pulse 36.7 C (98.1 F) 12/11/2018 4:23 PM CDT Temperature 16 12/11/2018 4:23 PM CDT Respiratory Rate 98% 12/11/2018 4:23 PM CDT Oxygen Saturation - - Inhaled Oxygen Concentration - - Weight 157.5 cm (5' 2") 12/11/2018 4:29 PM CDT Height - - Body Mass Index Plan of Treatment Health Maintenance Due Date Last Done Comments BREAST CANCER SCREENING 2002 COLONOSCOPY SCREENING 2002 SHINGLES VACCINES (#1) 2002 INFLUENZA VACCINE 04/20/2019 65+ PNEUMOCOCCAL VACCINE Completed 07/05/2018, 06/29/2017 Results Not on fileafter 05/18/2018 Insurance Type Payer Benefit Subscriber ID Effective Phone Address Plan / Dates Group [facility] MEDICARE AARP xxxxxxxxx [id number] MEDICARE resent [facility]PLE[facility] Advance Directives For more information, please contact: [phone] 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
--- OUTSIDE RECORDS SUMMARY | 2019-05-19 07:21 | XMS REPORT | Summary of Care ---
Author Author [facility] Primary Care [facility] [place] Address Unknown Phone Unavailable Encounter OLIVIA Thomas(SEAMUS) [id number] Date(s): 05/01/19 - 05/01/19 [facility] [place] [address] [facility] [address] [place] [address]- [phone] Discharge Disposition: Home or Self Care Attending Physician: Veronica Mccracken MD Vital Signs Most recent to 1 oldest [Reference Range]: Height 149.86 cm (05/01/19 3:30 PM) Temperature Oral 98.3 DegF [96.4-99.1 DegF] (05/01/19 3:30 PM) Blood Pressure 115/69 mmHg [90-140/60-90 mmHg] (05/01/19 3:30 PM) Respiratory Rate 20 BRMIN [14-20 BRMIN] (05/01/19 3:30 PM) Peripheral Pulse 80 bpm Rate [60-100 bpm] (05/01/19 3:30 PM) Weight 57.273 kg (05/01/19 3:30 PM) Body Mass Index 25.5 m2 (05/01/19 3:30 PM) Problem List Condition Effective Dates Status Health Status Informant Benign essential Active HTN(Confirmed) Chest Active pain(Confirmed) CAD (coronary artery Active disease)(Confirmed) Hyperlipemia, Active mixed(Confirmed) Ear pain(Confirmed) Active Simple Active obesity(Confirmed) TMJ Active tenderness(Confirmed ) Type 2 diabetes Active mellitus(Confirmed) Allergies, Adverse Reactions, Alerts Substance Reaction Severity Status ibuprofen Active traMADol Active Medications No Known Medications Results No data available for this section [...] Employment/School Status: Employed. 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 Substance Abuse Use: None. Smoking Status Never smoker; Exposure to Tobacco Smoke None; Cigarette Smoking Last 365 Days No; Reg Smoking Cessation Counseling No entered on: 05/01/19 Assessment and Plan No data available for this section
--- OUTSIDE RECORDS SUMMARY | 2019-05-19 07:21 | XMS REPORT | Summary of Care ---
Author Author [facility] Primary Care [facility] [place] Address Unknown Phone Unavailable Encounter HQ Encntr_alias(FIN) [id number] Date(s): 05/01/19 - 05/01/19 [facility] [place] [address] [address] [place] [address]- [phone] Attending Physician: Veronica Mccracken MD Vital Signs [...] Screening colonoscopy2 01/07/15 Completed Operative procedure on shoulder2011 Completed section4 Completed Colonoscopy Completed 1Normal 2Repeat in 5 years 3right shoulder tendons 4x 4 Social History Social History Type Response Alcohol Never Employment/School Status: Employed. 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 Substance Abuse Use: None. Smoking Status Never smoker; Exposure to Tobacco Smoke None; Cigarette Smoking Last 365 Days No; Reg Smoking Cessation Counseling No entered on: 05/01/19 Assessment and Plan No data available for this section
--- OUTSIDE RECORDS SUMMARY | 2019-05-19 07:21 | XMS REPORT | Summary of Care ---
Author Author [facility] Organization [facility] Address Unknown Phone Unavailable Encounter OLIVIA Thomas(SEAMUS) [id number] Date(s): 01/26/19 - 01/26/19 [facility] [address] [place] [address]- Discharge Disposition: Home or Self Care Attending Physician: Veronica Mccracken MD Vital Signs Most recent to 1 oldest [Reference Range]: Height 137.16 cm (01/26/19 10:17 AM) Temperature Oral 98.0 DegF [96.4-99.1 DegF] (01/26/19 10:17 AM) Blood Pressure 109/66 mmHg [90-140/60-90 mmHg] (01/26/19 10:17 AM) Respiratory Rate 16 BRMIN [14-20 BRMIN] (01/26/19 10:17 AM) Peripheral Pulse 82 bpm Rate [60-100 bpm] (01/26/19 10:17 AM) Weight 60.455 kg (01/26/19 10:17 AM) Body Mass Index 32.13 m2 (01/26/19 10:17 AM) Problem List Condition Effective Dates Status Health Status Informant Benign essential Active HTN(Confirmed) Chest Active pain(Confirmed) Ear pain(Confirmed) Active Simple Active obesity(Confirmed) Type 2 diabetes Active mellitus(Confirmed) Allergies, Adverse Reactions, Alerts Substance Reaction Severity Status ibuprofen Active traMADol Active Medications glimepiride 4 mg oral tablet 4 mg=1 tab, PO, Breakfast, # 90 tab, 1 Refill(s) Start Date: 01/26/19 Status: Ordered lisinopril 20 mg oral tablet 20 mg=1 tab, PO, Daily, # 90 tab, 1 Refill(s) Start Date: 01/26/19 Status: Ordered Results No data available for [...] None. Employment/School Status: Employed. 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
--- NOTE | 2019-05-19 09:58 | NUR ---
0922 Bedside report received from MELINDA Nguyễn. Pt oriented and appropriate, PERRLA, respirations even and unlabored to room air. Pulses x4 extremities equal and strong. Pedal pulses PT/DP x4 . Cap fill brisk < 3 sec. Rt Mynx site to groin w/o hematoma or oozing. Down till 1pm dc. No gross issues pain pallor pressure or dysrhythmia. Skin warm and dry integrity appears D/I. IV 20g to left wrist Iv infusing 100cchr per iv controller, presents healthy w/o s/s of infiltration or complaint. Abdomen soft and supple. pt offered toileting, denies need to urinate or defecate. No personal affects with patient. Family at bedside. Pt and family verbalizes understanding. Currently w/o complaint of pain or need. Back to baseline orientation. Tolerating po intake. ds/rn
--- NOTE | 2019-05-19 12:07 | Operative Report ---
DATE OF PROCEDURE: SURGEON: Ahmet Isaacs MD PROCEDURE: Left heart catheterization. INDICATIONS: 1. Chest pain Hypertension. 2. Coronary artery disease. ANESTHESIA: Versed, fentanyl, and lidocaine. COMPLICATIONS: None. TECHNIQUE: The right groin was draped and prepped in the usual fashion. The area was anesthetized with lidocaine. Standard Seldinger technique was used to place a 6-Bur[place]ian sheath into the right femoral artery without difficulty. A JL4 catheter was used to selectively engage the left coronary artery. The JR4 catheter was used to selectively engage the right coronary artery. A pigtail catheter was used to cross the aortic valve and measure left ventricular pressures and to do hand injection. The Mynx device was used for closure. RESULTS: As follows: 1. There is a normal left main trunk. 2. There is a large left anterior descending artery, which gave rise to a medium-sized diagonal branch. The previously placed stents in the mid left anterior descending artery were widely patent. 3. There was a medium-sized AV circumflex artery, which gave rise to a large bifurcating obtuse marginal branch. There was minimal disease in the circumflex system. 4. There was a large dominant right coronary artery with 40% stenosis in the mid vessel. 5. There was no gradient across the aortic valve and the left ventricular end-diastolic pressure was 10. CONCLUSION: The patient has patent stents in the left anterior descending artery. Ahmet Isaacs MD DSH/MODL /[id number]
--- NOTE | 2019-05-19 13:00 | NUR ---
1300-Pt meets DC criteria. Rt Mynx to rightgroin site assessed assessed for s/s of complication and presence of hematoma. D/I warm, dry, no discolor, and pulses present. IV removed from left arm. Distal tip appears intact. VS WNL. Pt denies pain, sob, or need at this time. Family at at bedside. Review of discharge paperwork and follow up instructions. verbalized understanding. Pt to wheelchair and transported to front of hospital. Transferred to care with [facility] escort ds/rn
== END | disposition home or self-care (01) ==
LOC: CATH LAB 07:18
PROVIDERS: ATTEND Internal Medicine Cardiovascular Disease
DX: I25.110 Atherosclerotic heart disease of native coronary artery with unstable angina pectoris (principal); R94.39 Abnormal result of other cardiovascular function study; Z01.810 Encounter for preprocedural cardiovascular examination; Z01.812 Encounter for preprocedural laboratory examination; Z01.811 Encounter for preprocedural respiratory examination; R07.9 Chest pain, unspecified; I10 Essential (primary) hypertension; Z95.5 Presence of coronary angioplasty implant and graft; Z88.6 Allergy status to analgesic agent; Z88.5 Allergy status to narcotic agent
CPT/HCPCS: 36415; 71046; 80053; 85025; 85610; 85730; 93005; 93458; C1760; C1769; J2001; J2250; J3010; J7030; Q9967

== ENCOUNTER 2019-05-27 11:30 | Emergency (ER) | payer MEDICARE ==
[~2019-05-27] VITALS: Ht 149.9 cm; Wt 58.1 kg
[~2019-05-27 11:30] MED LIST changes: -FENTANYL CITRATE/PF 100MCG/2 ML INJ ONE; -HEPARIN SOD/SOD CHLORIDE 2,000 ML ONE; -IOPAMIDOL 370 MG/ML 200 ML INFUS..BTL INJ ONE; -LIDOCAINE HCL 2% LOCAL 20 ML VIAL ONE; -MIDAZOLAM HCL 2 MG/2 ML VIAL ONE; -SODIUM CHLORIDE 0.9% 1000ML 1,000 ML ONE; -VERAPAMIL HCL 2.5 MG/ML 2 ML VIAL ONE
--- OUTSIDE RECORDS SUMMARY | 2019-05-27 11:33 | XMS REPORT | Continuity of Care Document ---
Author Author [place] Address Unknown Phone Unavailable Care Team Providers Care Cloth Tester Quality Name Role Phone Networked Insights Information [employer] Unavailable Unavailable Problems Problem Status Onset Date Classification Date Reported Comments Source Benign essential hypertension (disorder) Active Problem 05/04/2019 [facility] Chest pain (finding) Active Problem 05/04/2019 [facility] Coronary arteriosclerosis (disorder) Active Problem 05/04/2019 [facility] Mixed hyperlipidemia (disorder) Active Problem 05/04/2019 [facility] Otalgia (disorder) Active Problem 05/04/2019 [facility] Simple obesity (disorder) Active Problem 05/04/2019 [facility] Temporomandibular joint tender (finding) Active Problem 05/04/2019 [facility] Diabetes mellitus type 2 (disorder) Active Problem 05/04/2019 [facility] Medications Medication Details Route Status Patient Instructions Ordering Provider Order Date Source diclofenac potassium 50 mg oral tablet 50 mg=1 tab, PO, BID, PRN Pelvic Pain, X 7 day, # 14 tab, 0 Refill(s), Pharmacy: [id number] Active 02/21/2019 [facility] traMADol 100 mg/24 hours oral capsule, extended release 100 mg=1 cap, PO, Daily, 0 Refill(s) Active 02/21/2019 [facility] tramadol hydrochloride 50 MG Oral Tablet 50 mg=1 tab, PO, Q6H, PRN Pain, # 40 tab, 0 Refill(s) Active 02/21/2019 [facility] ciclopirox 80 MG/ML Topical Solution 0 Refill(s) Active 02/21/2019 [facility] clopidogrel 75 mg oral tablet 75 mg=1 tab, PO, Daily, # 90 tab, 1 Refill(s) Active 02/21/2019 [facility] diazepam 5 mg oral tablet 5 mg=1 tab, PO, Q8H, PRN Muscle Spasms, # 30 tab, 0 Refill(s) Active 02/21/2019 [facility] Clopidogrel Bisulfate (Plavix) 75 Mg Tablet Daily Active [place] 02/09/2019 [facility] Metoprolol Tartrate (Lopressor) 25 Mg Tab Twice A Day Active [place] 02/09/2019 [facility] lisinopril 20 mg oral tablet 20 mg=1 tab, PO, Daily, # 90 tab, 1 Refill(s) Active 01/26/2019 [facility] glimepiride 4 mg oral tablet 4 mg=1 tab, PO, Breakfast, # 90 tab, 1 Refill(s) Active 01/26/2019 [facility] Ciprofloxacin 2 MG/ML / Hydrocortisone 10 MG/ML Otic Suspension [Cipro HC] 3 drp, BOTH EARS, BID, X 7 day, # 10 ml, 0 Refill(s), Pharmacy: [id number] Active 01/18/2019 [facility] Aspirin 81 MG Enteric Coated Tablet 81 mg=1 tab, PO, Daily Active 01/18/2019 [facility] naproxen 500 mg oral tablet 500 mg=1 tab, PO, BID, 0 Refill(s) Active 01/18/2019 [facility] atorvastatin 20 mg oral tablet 20 mg=1 tab, PO, Bedtime, 0 Refill(s) Active 01/18/2019 [facility] Linagliptin 5 MG Oral Tablet [Tradjenta] 5 mg=1 tab, PO, Daily, 0 Refill(s) Active 01/18/2019 [facility] amLODIPine 5 mg oral tablet 5 mg=1 tab, PO, Daily, 0 Refill(s) Active 01/18/2019 [facility] Loratadine 10 MG Oral Tablet 10 mg=1 tab, PO, Daily, 0 Refill(s) Active 01/18/2019 [facility] Metformin hydrochloride 500 MG Oral Tablet 1,000 mg=2 tab, PO, BID, 0 Refill(s) Active 01/18/2019 [facility] Fenofibrate 145 MG Oral Tablet 145 mg=1 tab, PO, Daily, 0 Refill(s) Active 01/18/2019 [facility] gabapentin 400 MG Oral Capsule 400 mg=1 cap, PO, TID, 0 Refill(s) Active 01/18/2019 [facility] Fluticasone propionate 0.05 MG/ACTUAT Metered Dose Nasal [place] 1 spray, NASAL, Bedtime, 0 Refill(s) Active 01/18/2019 [facility] Amlodipine Besylate 5 Mg Tablet Daily Active [facility] Aspirin (Aspir 81) 81 Mg Tablet.dr Daily Active [facility] Atorvastatin Calcium 20 Mg Tablet Bedtime Active [facility] Cholecalciferol (Vitamin D3) (Vitamin D3) 5,000 Unit Capsule Daily Active [facility] Fenofibrate Nanocrystallized (Fenofibrate) 145 Mg Tablet Daily Active [facility] Fluticasone Propionate 16 Gm [place].susp Bedtime Active [facility] Gabapentin 400 Mg Capsule Three Times A Day Active [facility] Glimepiride 2 Mg Tablet Daily Active [facility] Linagliptin (Tradjenta) 5 Mg Tablet Daily Active [facility] Lisinopril 10 Mg Tablet Daily Active [facility] Loratadine 10 Mg Tab.rapdis Daily Active [facility] Metformin Hcl 500 Mg Tablet Twice A Day Active [facility] Naproxen 250 Mg Tablet Twice A Day Active [facility] Allergies, Adverse Reactions, Alerts Substance Category Reaction Severity Reaction type Status Date Reported Comments Source No Known Drug Allergies Unknown Allergy to Substance Active 02/07/2019 [facility] ibuprofen Assertion Drug allergy Active [facility] traMADol Assertion Drug allergy Active [facility] Immunizations Immunization Date Given Site Status Last Updated Comments Source Hx influenza vaccine-unspecified 06/20/2018 [facility] Hx pneumococcal vaccine 06/20/2018 [facility] Results Order Name Results Value Reference Range Date Interpretation Comments Source Blood leukocytes automated count (number/volume) 10.10 4.8 - 10.8 02/12/2019 [facility] Blood erythrocytes automated count (number/volume) 4.31 3.6 - 5.1 02/12/2019 [facility] Blood hemoglobin measurement (moles/volume) 11.3 12.0 - 16.0 02/12/2019 [facility] Automated blood hematocrit (volume fraction) 34.9 34.2 - 44.1 02/12/2019 [facility] Automated erythrocyte mean corpuscular volume 81.0 81 - 99 02/12/2019 [facility] Automated erythrocyte mean corpuscular hemoglobin (mass per erythrocyte) 26.2 28 - 32 02/12/2019 [facility] Automated erythrocyte mean corpuscular hemoglobin concentration measurement (mass/volume) 32.4 31 - 35 02/12/2019 [facility] RDW BldCo-Rto 14.9 11.7 - 14.4 02/12/2019 [facility] Automated blood platelet count (count/volume) 305 140 - 360 02/12/2019 [facility] Automated blood segmented neutrophil count as percentage of total leukocytes 76.1 38.7 - 80.0 02/12/2019 [facility] Automated blood lymphocyte count as percentage ot total leukocytes 16.4 18.0 - 39.1 02/12/2019 [facility] Automated blood monocyte count as percentage of total leukocytes 6.0 4.4 - 11.3 02/12/2019 [facility] Automated blood eosinophil count as percentage of total leukocytes 0.8 0.0 - 6.0 02/12/2019 [facility] Automated blood basophil count as percentage of total leukocytes 0.3 0.0 - 1.0 02/12/2019 [facility] IM GRANULOCYTES % 0.4 0.0 - 1.0 02/12/2019 [facility] Automated blood neutrophil count 7.7 2.1 - 6.9 02/12/2019 [facility] Blood lymphocytes count (number/volume) 1.7 1.0 - 3.2 02/12/2019 [facility] Blood monocytes automated count (number/volume) 0.6 0.2 - 0.8 02/12/2019 [facility] Automated blood eosinophil count 0.1 0.0 - 0.4 02/12/2019 [facility] Automated blood basophil count (count/volume) 0.0 0.0 - 0.1 02/12/2019 [facility] Absolute Immature Granulocyte (auto 0.04 0 - 0.1 02/12/2019 [facility] Serum or plasma sodium measurement (moles/volume) 135 136 - 145 02/12/2019 [facility] Serum or plasma potassium measurement (moles/volume) 4.0 3.5 - 5.1 02/12/2019 [facility] Serum or plasma chloride measurement (moles/volume) 97 98 - 107 02/12/2019 [facility] Serum or plasma carbon dioxide, total measurement (moles/volume) 29 22 - 29 02/12/2019 [facility] Serum or plasma anion gap 13.0 8 - 16 02/12/2019 [facility] Serum or plasma urea nitrogen measurement (mass/volume) 13 7 - 26 02/12/2019 [facility] Serum or plasma creatinine measurement (mass/volume) 0.72 0.57 - 1.11 02/12/2019 [facility] Serum or plasma urea nitrogen/creatinine mass ratio 18 6 - 25 02/12/2019 [facility] Estimated glomerular filtration rate (GFR) determination > 60 60 02/12/2019 [facility] Glucose measurement 140 74 - 118 02/12/2019 [facility] Serum or plasma calcium measurement (mass/volume) 10.0 8.4 - 10.2 02/12/2019 [facility] Serum or plasma creatine kinase measurement (enzymatic activity/volume) 99 29 - 168 02/12/2019 [facility] Serum or plasma creatine kinase MB measurement (mass/volume) 1.30 0 - 5.0 02/12/2019 [facility] Troponin I measurement by highly sensitive enzyme immunoassay 0.005 0 - 0.300 02/12/2019 [facility] Urine color determination YELLOW YELLOW 02/12/2019 [facility] Urine clarity CLEAR CLEAR 02/12/2019 [facility] Specific gravity of Urine by Test strip 1.010 1.010 - 1.025 02/12/2019 [facility] Urine pH measurement by automated test strip 8 5 - 7 02/12/2019 [facility] Urine leukocyte esterase detection by automated test strip TRACE NEGATIVE 02/12/2019 [facility] Urine nitrite detection by automated test strip NEGATIVE NEGATIVE 02/12/2019 [facility] Urine protein detection by automated test strip NEGATIVE NEGATIVE 02/12/2019 [facility] Urine glucose detection by automated test strip 1+ NEGATIVE 02/12/2019 [facility] Urine ketones detection by automated test strip NEGATIVE NEGATIVE 02/12/2019 [facility] Urine urobilinogen measurement by test strip (mass/volume) 0.2 0.2 - 1 02/12/2019 [facility] Urine total bilirubin detection NEGATIVE NEGATIVE 02/12/2019 [facility] Urine erythrocytes detection NEGATIVE NEGATIVE 02/12/2019 [facility] Automated urine sediment leukocyte count by microscopy (number/high power field) >50 0 - 5 02/12/2019 [facility] Erythrocytes detection in urine sediment by light microscopy NONE 0 - 5 02/12/2019 [facility] Bacteria detection in urine sediment by light microscopy MANY NONE 02/12/2019 [facility] Epithelial cells detection in urine sediment by light microscopy MODERATE NONE 02/12/2019 [facility] Capillary blood glucose measurement by glucometer (mass/volume) 192 70 - 120 02/08/2019 [facility] Prothrombin time (PT) in platelet poor plasma by coagulation assay 12.0 11.9 - 14.5 02/07/2019 [facility] INR in Platelet poor plasma by Coagulation assay 0.84 02/07/2019 [facility] Activated partial thromboplastin time (aPTT) in platelet poor plasma bycoagulation assay 27.4 23.8 - 35.5 02/07/2019 [facility] Serum or plasma total bilirubin measurement (mass/volume) 0.2 0.2 - 1.2 02/07/2019 [facility] Aspartate Amino Transf (AST/SGOT) 21 5 - 34 02/07/2019 [facility] Serum or plasma alanine aminotransferase measurement (enzymatic activity/volume) 22 0 - 55 02/07/2019 [facility] Serum or plasma protein measurement (mass/volume) 7.1 6.5 - 8.1 02/07/2019 [facility] Serum or plasma albumin measurement (mass/volume) 4.0 3.5 - 5.0 02/07/2019 [facility] Plasma globulin measurement (mass/volume) 3.1 2.3 - 3.5 02/07/2019 [facility] Serum or plasma albumin/globulin mass ratio 1.3 0.8 - 2.0 02/07/2019 [facility] Serum or plasma alkaline phosphatase measurement (enzymatic activity/volume) 83 40 - 150 02/07/2019 [facility] Pathology Reports No Data Provided for This [...] ADM Date DC Date Status Source Outpatient [id number] Veronica Redman 01/18/2019 Active [facility] Outpatient [id number] Veronica Redman 01/18/2019 01/19/2019 [facility] Outpatient [id number] Veronica Redman 01/26/2019 Active [facility] Outpatient [id number] Veronica Redman 01/26/2019 01/27/2019 [facility] Discharged Inpatient (obs) [id number] LCUITA KRUSE MD 02/08/2019 02/09/2019 [facility] Departed Emergency Room [id number] JEANETTE WU MD 02/12/2019 02/12/2019 [facility] Outpatient [id number] Veronica Redman 02/21/2019 Active [facility] Outpatient [id number] Veronica Redman 02/21/2019 02/22/2019 [facility] Outpatient [id number] Veronica Redman 05/01/2019 Active [facility] Outpatient [id number] Veronica Redman 05/01/2019 Active [facility] Outpatient [id number] Veronica Redman 05/01/2019 Active [facility] Eric [facility] Ambulatory Pre-Reg [id number] Veronica Hook Redman 05/01/2019 05/01/2019 [facility] [place] Outpatient [id number] Veronica Hook Redman 05/01/2019 05/02/2019 [facility] [place] Ambulatory Pre-Reg [id number] Veronica Hook Redman 05/01/2019 05/01/2019 [facility] Procedures Procedure Code Date Perfomer Comments Source X-ray of chest, two views [id number] 02/07/2019 URIAH Cochran [facility] Removal impacted cerumen requiring instrumentation, unilateral [id number] 01/18/2019 [facility] Mammogram - screening<sup>1</sup> [id number] 12/07/2018 Normal [facility] Mammogram [id number] 09/20/2018 [facility] Screening colonoscopy<sup>2</sup> [id number] 01/07/2015 Repeat in 5 years [facility] Operative procedure on shoulder<sup>3</sup> [id number] 09/20/2011 right shoulder tendons [facility] Operative procedure on shoulder<sup>1</sup> [id number] 09/20/2011 right shoulder tendons [facility] section<sup>4</sup> [id number] x 4 [facility] Colonoscopy [id number] [facility] section<sup>2</sup> [id number] x 4 [facility] Assessment and Plan No Data Provided for This Section Plan of Care Plan of Care Date Source Discharge Date 02/12/19 2:20pm Disposition HOME, SELF-CARE Condition at Discharge Stable Instructions/Education Provided Urinary Tract Infection - Women Forms Provided Work/School Excuse Prescriptions See Medication Section Referrals LUCITA KRUSE MD Address: [address] [place] [id number] MELCHOR MEDLEY MD Address: [facility] [place] [address] Additional Instructions/Education Your diagnosis today is acute nontraumatic lumbar back pain and acute urinary tract infection with cystitis. Take medications as prescribed. Follow up with Primary Care Physician. Return to nearest ED for any acute changes in condition. 02/12/2019 [facility] Social History Social History Date Source Social History Problem Response Recorded Date/Time Onset Date Status Hx Substance Use Disorder N - PATIENT DENIES 02/07/2019 1:15pm Not Applicable Not Applicable Hx Alcohol Use Y - "DRINKS ABOUT ONCE EVERY 3 MONTHS" 02/07/2019 1:15pm Not Applicable Not Applicable Smoking Status Start Date Stop Date Never Smoker 02/12/2019 [facility] Social History TypeResponse Alcohol Never Employment/School Status: Employed. Work/School description: [employer]. Substance Abuse Use: None. Smoking Status Never [...] Do you have a Medical Power of Language Therapist? No 02/12/19 11:49am Do you have an [...] rights and responsibilities? Yes 02/12/19 11:49am 02/12/2019 [facility] Functional Status No Data Provided for This Section
--- OUTSIDE RECORDS SUMMARY | 2019-05-27 11:33 | XMS REPORT | Clinical Summary ---
Author Author [facility] [facility] Organization [employer] [employer] Address Unknown Phone Unavailable Care Team Providers Care Gwot [employer] Intelligence Support Name Role Phone Arian Salazar MD PCP [...] headache type 12/11/2018 Emergency Emergency Medicine after 2018 Social History Date Tobacco Use Types Packs/Day [...] Completed 07/05/2018, 06/29/2017 Results Not on fileafter 2018 Insurance Type Payer Benefit Subscriber ID Effective Phone Address Plan / Dates Group [facility] MEDICARE AARP xxxxxxxxx [id number] MEDICARE resent [facility] Advance Directives For more information, please contact: [phone] 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
[2019-05-27 12:30] LABS: BASOPHILS % 0.2 % (0.0-1.0); EOSINOPHILS # (AUTO) 0.1 (0.0-0.4); EOSINOPHILS % 0.6 % (0.0-6.0); HEMOGLOBIN 10.9 g/dL (12.0-16.0); LYMPHOCYTES # (AUTO) 1.1 (1.0-3.2); LYMPHOCYTES % 12.6 % (18.0-39.1); MEAN CORPUSCULAR HEMOGLOBIN 26.2 pg (28-32); MEAN CORPUSCULAR VOLUME 79.3 fL (81-99); MONOCYTES # (AUTO) 0.6 (0.2-0.8); MONOCYTES % 6.4 % (4.4-11.3); PLATELET COUNT 351 x10e3/uL (140-360); RED BLOOD COUNT 4.16 x10e6/uL (3.6-5.1); RED CELL DISTRIBUTION WIDTH 15.3 % (11.7-14.4)
[2019-05-27] MEDS ORDERED: HYDROCODONE/APAP 7.5MG-325MG 1 EA TAB PO ONE (12:30)
[2019-05-27] MEDS ORDERED: ONDANSETRON HCL 4 MG ORAL DISINTEGRATING TAB PO ONE (12:30)
[2019-05-27 12:39] LABS: INR 0.89; PROTHROMBIN TIME 12.5 seconds (11.9-14.5)
--- NOTE | 2019-05-27 12:39 | NUR ---
Honey mckeon in [facility] - 05/27/19 at 1337 by OCTAVIO PATIENT PLACED IN ROOM 4
[2019-05-27 12:40] LABS: PARTIAL THROMBOPLASTIN TIME 33.9 seconds (23.8-35.5)
[2019-05-27 12:48] LABS: ALANINE AMINOTRANSFERASE 30 IU/L (0-55); ALBUMIN 3.4 g/dL (3.5-5.0); ALBUMIN/GLOBULIN RATIO 0.9 (0.8-2.0); ALKALINE PHOSPHATASE 128 IU/L (40-150); ANION GAP 14.9 mmol/L (8-16); BLOOD UREA NITROGEN 13 mg/dL (7-26); BUN/CREATININE RATIO 18 (6-25); CALCIUM 9.9 mg/dL (8.4-10.2); CARBON DIOXIDE 27 mmol/L (22-29); CHLORIDE 100 mmol/L (98-107); CREATININE, SERUM 0.72 mg/dL (0.57-1.11); EST GLOMERULAR FILTRATION RATE > 60 ML/MIN (60-); GLUCOSE 116 mg/dL (74-118); POTASSIUM 3.9 mmol/L (3.5-5.1); SODIUM 138 mmol/L (136-145)
[2019-05-27 13:02] LABS: CREATINE KINASE MB 0.6 ng/mL (0-5.0)
--- NOTE | 2019-05-27 13:21 | NUR ---
PATIENT TO ROOM 4.
--- NOTE | 2019-05-27 13:31 | Diagnostic Imaging Report ---
EXAMINATION: CHEST SINGLE (PORTABLE) INDICATION: ACHY ALL OVER COMPARISON: Chest radiograph 05/17/2019. FINDINGS: TUBES and LINES: None. LUNGS: Low lung volumes. Mild patchy bibasilar opacity, likely atelectasis. There is no evidence of pneumonia or pulmonary edema. PLEURA: No pleural effusion or pneumothorax. HEART AND MEDIASTINUM: The cardiomediastinal silhouette is unremarkable. BONES AND SOFT TISSUES: No acute osseous abnormality. UPPER ABDOMEN: No free air under the diaphragm. IMPRESSION: No acute radiographic abnormality. Signed by: Dr. Dave Regalado MD on 05/27/2019 1:28 PM
[2019-05-27 13:35] LABS: BILIRUBIN,URINE NEGATIVE (NEGATIVE); CLARITY,URINE CLEAR (CLEAR); COLOR,URINE YELLOW (YELLOW); KETONES,URINE NEGATIVE (NEGATIVE); LEUKOCYTE ESTERASE ,URINE NEGATIVE (NEGATIVE); NITRITE,URINE NEGATIVE (NEGATIVE); PROTEIN,URINE DIPSTICK NEGATIVE (NEGATIVE); URINE UROBILINOGEN 0.2 mg/dL (0.2 - 1)
[2019-05-27 13:46] LABS: BACTERIA,URINE FEW /HPF; EPITHELIAL CELLS,URINE FEW /LPF; RBC,URINE 0-5 /HPF (0-5); WBC,URINE (MAN) 0-5 /HPF (0-5)
--- NOTE | 2019-05-27 14:08 | Diagnostic Imaging Report ---
Examination: CT BRAIN WO CONTRAST HISTORY: 69-year-old female with headache and neck pain COMPARISON: None. TECHNIQUE: Noncontrast axial scans were obtained from skull base to the vertex. Coronal and sagittal reconstructions obtained from the axial data. One or more of the following dose reduction techniques were used: Automated exposure control, adjustment of the mA and/or kV according to patient size, and/or utilization of iterative reconstruction technique. DISCUSSION: Scalp/Skull: Unremarkable. Brain sulci: Appropriate for patient's age. Ventricles: Normal in size and configuration. No hydrocephalus. Extra-axial spaces: A 0.5 cm circumscribed, rounded lesion with internal calcification is identified extending from the left tentorial leaflet (series 401 image 35) suggestive of a meningioma. No extra-axial fluid collections are seen. Parenchyma: Scattered patchy hypoattenuating foci are identified in the deep and subcortical white matter consistent with chronic small vessel ischemic changes. No mass, hemorrhage, or large vascular territory acute infarct. Dural sinuses: No abnormal densities. Sellar/Suprasellar region: Intact. Skull base: Intact. Incidental findings: None. IMPRESSION: 1. No acute intracranial abnormalities. 2. Small (0.5 cm) circumscribed rounded, partially calcified lesion within the left tentorial leaflet is most suggestive of a small meningioma. Nonemergent MRI can be performed for further evaluation if needed. 3. Chronic small vessel ischemic changes. This preliminary report was issued by Dr. Ronen Humphrey neuroradiology fellow at 1407 hours on 05/27/2019. The images and preliminary report were reviewed and signed by Dr. Hayde White, neuroradiology faculty, on 05/27/2019 at 1533 hours. Signed by: Dr. Hayde White M.D. on 05/27/2019 3:33 PM
--- NOTE | 2019-05-27 14:16 | Diagnostic Imaging Report ---
Examination: CT CERVICAL SPINE WO CONTRAST HISTORY: 69-year-old female with headache and neck pain COMPARISON: None. TECHNIQUE: CT of the cervical spine without contrast. Sagittal and coronal reformations were created. One or more of the following dose reduction techniques were used: Automated exposure control, adjustment of the mA and/or kV according to patient size, and/or utilization of iterative reconstruction technique. FINDINGS: Alignment:Normal alignment with straightening of normal lordosis which may be related to positioning. Minimal anterolisthesis of C4 on C5 is seen. Vertebrae: Normal height and density. No acute fracture, infection or neoplasm. Disc space heights: Normal height. Caliber of spinal canal: Developmentally normal. Posterior fossa and craniocervical junction: Foramen magnum patent. No Chiari 1 malformation. Soft tissues: No abnormality. Degenerative changes: Multilevel degenerative changes are identified including moderate degenerative disc changes extending from C5-T1. Multilevel moderate to severe facet arthropathy is also noted. IMPRESSION: 1. No acute osseous abnormalities. 2. Moderate degenerative disc changes extending from C5-T1. 3. Multilevel moderate to severe facet arthropathy. 4. Minimal C4-C5 anterolisthesis. This preliminary report was issued by Dr. Ronen Humphrey Neuroradiology fellow at 1416 hours on 05/27/2019. The images and preliminary report were reviewed and signed by Dr. Hayde White, neuroradiology faculty, on 05/27/2019 at 1548 hours. Signed by: Dr. Hayde White M.D. on 05/27/2019 3:48 PM
== END 2019-05-27 16:27 | disposition home or self-care (01) ==
LOC: ER 11:30
DX: M54.2 Cervicalgia (principal); R51 Headache; M54.9 Dorsalgia, unspecified; G89.29 Other chronic pain; I10 Essential (primary) hypertension; E11.9 Type 2 diabetes mellitus without complications; E78.5 Hyperlipidemia, unspecified; Z95.5 Presence of coronary angioplasty implant and graft
CPT/HCPCS: 36415; 70450; 71045; 72125; 80053; 81001; 82550; 82553; 84484; 85025; 85610; 85730; 87086; 99284; Q0162